=== PATIENT | female | born 1950 | race Caucasian/White ===

== ENCOUNTER 2024-07-14 07:31 | Emergency (ER) | payer OTHER, MEDICARE ==
[~2024-07-14] VITALS: Ht 162.6 cm; Wt 46.7 kg
[2024-07-14 07:38] VITALS: BP_SYST 155; PULSE 82; RESP 17; TEMP 98.2; O2SAT 96
[2024-07-14 08:23] VITALS: BP_SYST 155; PULSE 82; RESP 17; TEMP 98.2; O2SAT 96
== END 2024-07-14 08:23 | disposition home or self-care (01) ==
LOC: SED 07:31
DX: H53.8 Other visual disturbances (principal)
CPT/HCPCS: 99282